=== PATIENT | male | born 1970 | race Caucasian/White ===

== ENCOUNTER 2018-04-25 20:02 | Emergency (ER) | payer OTHER ==
--- NOTE | 2018-04-25 21:23 | UC ---
Respiratory Complaint HPI - HPI Summary HPI Summary: 48 y/o male w/ PMHX of DM type II, COPD and asthma presents to the urgent care c /o productive cough w/ green sputum and fever, chills, body aches for the past 2 days. Pt reports Hx pneumonia last year. Ptt states symptoms started w/ a common cold and then he developed the productive cough w/ wheezing. He has been taking Robitusin PO and his Albuterol inhaler w/o any improvement. Pain is 5/10 body aches and from coughing. Pt took Ibuprofen PO 400mg PO around 1930pm to alleviate fever. Pt denies abdominal pain, chest pain, dizziness, N/V/D, rash , neck pain. - History of Current Complaint Chief Complaint: UCRespiratory Stated Complaint: CHILLS,FEVER,COUGH Time Seen by Provider: 04/25/18 21:15 Hx Obtained From: Patient Onset/Duration: Gradual Onset, Lasting Days - 2 days, Still Present, Worse Since - today Timing: Intermittent Episodes Severity Initially: Mild Severity Currently: Moderate Pain Intensity: 5 - body aches Pain Scale Used: 0-10 Numeric Character: Cough: Productive, Sputum Description: - green Aggravating Factors: Recumbent Position Alleviating Factors: Bronchodilator, OTC Meds - Robitussin Associated Signs And Symptoms: Positive: Fever, Chills, Wheezing, URI, Nasal Congestion - Risk Factors Pulmonary Embolism Risk Factors: Negative Cardiac Risk Factors: Negative Pseudomonas Risk Factors: Negative Tuberculosis Risk Factors: Negative - Allergies/Home Medications Allergies/Adverse Reactions: Allergies Allergy/AdvReac Type Severity Reaction Status Date / Time iodine Allergy GI Upset Verified 04/25/18 20:27 morphine Allergy Hives Verified 04/25/18 20:27 Penicillins Allergy Hives Verified 04/25/18 20:27 seafood Allergy Anaphylatic Uncoded 04/25/18 20:27 Shock Home Medications: Home Medications Albuterol HFA INHALER* [Ventolin HFA Inhaler*] 2 puff INH Q6H PRN 04/25/18 [ History Confirmed 04/25/18] Mometasone/Formoter 100/5 MDI* [Dulera 100/5 MDI*] 2 puff INH BID 04/25/18 [ History Confirmed 04/25/18] Spiriva Inhaler DEVICE* [Tiotropium Inhaler DEVICE*] 2 inh DAILY 04/25/18 [ History Confirmed 04/25/18] metFORMIN* [Glucophage 500 MG TAB *] 500 mg PO BID 04/25/18 [History Confirmed 04/25/18] PMH/Surg Hx/FS Hx/Imm Hx Previously Healthy: Yes Endocrine History: Diabetes Cardiovascular History: Hypertension Respiratory History: COPD, Asthma, Pneumonia - Surgical History Surgical History: Yes Surgery Procedure, Year, and Place: Angio cath. Vasectomy - Family History Known Family History: Positive: Hypertension, Diabetes - Social History Occupation: Employed Full-time Lives: With Family Alcohol Use: Rare Substance Use Type: None Smoking Status (MU): Former Smoker Review of Systems Constitutional: Fever, Chills, Other - body aches Skin: Negative Eyes: Negative ENT: Nasal Discharge, Sinus Congestion Respiratory: Shortness Of Breath, Cough - productive, Other - wheezing Cardiovascular: Negative Gastrointestinal: Negative Genitourinary: Negative Motor: Negative Neurovascular: Negative Musculoskeletal: Negative Neurological: Negative Psychological: Negative Is Patient Immunocompromised?: No All Other Systems Reviewed And Are Negative: Yes Physical Exam - Summary Physical Exam Summary: Vital Signs Reviewed: Yes General: well developed, well nourished obese male sitting in the examining table w/o any apparent distress Eyes: Positive: Conjunctiva Clear - PERRLA, EOMI, fundi grossly normal ENT: Positive: Normal ENT inspection, Hearing grossly normal, Pharynx normal, Nasal congestion - edematous and erythematous nasal mucosa, Nasal drainage - yellowish drainage, TMs normal. Negative: Tonsillar swelling, Tonsillar exudate Neck: Positive: Supple, Nontender, No Lymphadenopathy Respiratory: no orthopnea or dyspnea. Able to speak in full sentences, no retractions or accessory muscle use, no tripod position, stridor, or head bobbing. Positive breath sounds bilaterally. diffuse scattered wheezing and rhonchi on b/L lungs, no crackles or rales. Cardiovascular: Positive: RRR, No Murmur, Pulses Normal, Brisk Capillary Refill Abdomen Description: Positive: Nontender, No Organomegaly, Soft. Negative: CVA Tenderness (R), CVA Tenderness (L) Bowel Sounds: Positive: Present Musculoskeletal Exam: Normal Musculoskeletal: Positive: Strength Intact, ROM Intact, No Edema Neurological Exam: Normal Psychological Exam: Normal Skin Exam: Normal Triage Information Reviewed: Yes Vital Signs: Initial Vital Signs Temp 100.3 F 04/25/18 20:19 Pulse 108 04/25/18 20:19 Resp 20 04/25/18 20:19 BP 135/86 04/25/18 20:19 Pulse Ox 96 04/25/18 20:19 Diagnostic Evaluation - Laboratory O2 Sat by Pulse Oximetry: 96 Respiratory Course/Dx - Course Course Of Treatment: 48 y/o male w/ PMHX of DM type II, COPD and asthma presents to the urgent care c/o productive cough w/ green sputum and fever, chills, body aches for the past 2 days. Pt reports Hx pneumonia last year. Ptt states symptoms started w/ a common cold and then he developed the productive cough w/ wheezing. He has been taking Robitusin PO and his Albuterol inhaler w/ o any improvement. Pain is 5/10 body aches and from coughing. Pt took Ibuprofen PO 400mg PO around 1930pm to alleviate fever. Pt denies abdominal pain, chest pain, dizziness, N/V/D, rash, neck pain. Hx obtained. Pt w/ diffuse scattered wheezing and rhonchi on b/L lungs on examination. O2Sat:96%/. Chest X-ray ordered to r/o pneumonia. Impression: No active Cardiopulmonary disease observed. Pt is a heavy smoker. Rapid Influenza A&B: negative. Prednisone 60 mg PO ordered and Duoneb treatment ordered. Pt tolerated well medications and lungs improved. Pt states feeling better. Pt will be tx for Acute Bronchitis, Rx Doxycycline PO , Prednisone taper dose and Inhaler. Strongly advised to f/u with his Remodeler or PCP for further management on his COPD. Strongly advised if worsening symptoms and he devleops SOB and fever is not control despite taking medications to immediately go to the ER for further management. D /C instructions explained. Pt understood and agreed with D/C instructions and left the clinic hemodynamically stable. - Differential Dx/Diagnosis Differential Diagnosis/HQI/PQRI: Asthma, Bronchitis, Exacerbation Of COPD, Influenza, Lower Resp Infection, Sinusitis, Other - pneumonia Provider Diagnoses: 1- COPD exacerbation due to bronchitis. 2- Wheezing Discharge - Sign-Out/Discharge Documenting (check all that apply): Patient Departure - D/C home All imaging exams completed and their final reports reviewed: No - Discharge Plan Condition: Stable Disposition: HOME Prescriptions: Albuterol HFA INHALER* [Ventolin HFA Inhaler*] 1 - 2 puff INH Q4H PRN #1 mdi PRN Reason: Wheezing Albuterol/Ipratropium NEB.TRI* [Duoneb (Albuterol 2.5 MG/Ipratropium 0.5 MG)] 1 neb INH Q6H PRN #1 box PRN Reason: Wheezing DOXYcycline CAP(*) [DOXYcycline 100MG CAP(*)] 100 mg PO BID #19 cap predniSONE TAB* [Deltasone 10 MG TAB*] 10 - 40 mg PO DAILY #25 tab Patient Education Materials: Acute Bronchitis (ED), COPD (Chronic Obstructive Pulmonary Disease) (ED) Referrals: Carmenza Gillette NP [Primary Care Provider] - 2 Days Additional Instructions: 1-Please take full course of antibiotic to avoid resistance. First dose given tonight. 2- Please take Prednisone PO taper dose as directed. First dose given tonight 3- Continue taking Robitussin PO and use the albuterol inhaler to alleviate wheezing. Increase fluid intake, rest and eat well. 4- If symptoms do not improve or worsen or your develop SOB with fever and severe wheezing please go immediately to the ER further evaluation and treatment. 4- F/u with your PCP in 2-3 days for further management on your COPD. 5- Final radiology reading will be done tomorrow morning. You will be notified if other abnormality is seen 6- Influenza A&B was negative - Billing Disposition and Condition Condition: STABLE Disposition: Home - Attestation Statements Provider Attestation: Per institutional requirements, I have reviewed the chart, however, I was not consulted specifically or made aware of this patient by the midlevel provider. I did not personally evaluate, interact with , or disposition this patient.
[2018-04-25] MEDS ORDERED: Albuterol/Ipratropium NEB.SOL* Albuterol 2.5 MG/Ipratropium 0.5 MG 3 ML INH ONE (21:31)
[2018-04-25] MEDS ORDERED: predniSONE TAB* 20 MG PO ONE (21:31)
[2018-04-25] MEDS ORDERED: Acetaminophen TAB* 325 MG PO ONE (21:34)
[2018-04-25] MEDS ORDERED: DOXYcycline CAP(*) 100 MG PO ONE (21:59)
== END 2018-04-25 22:16 | disposition home or self-care (01) ==
LOC: UCCORT 20:02
DX: J44.1 Chronic obstructive pulmonary disease with (acute) exacerbation (principal); J44.0 Chronic obstructive pulmonary disease with (acute) lower respiratory infection; J40 Bronchitis, not specified as acute or chronic; R06.2 Wheezing; E11.9 Type 2 diabetes mellitus without complications; J45.909 Unspecified asthma, uncomplicated; Z88.8 Allergy status to other drugs, medicaments and biological substances; Z88.5 Allergy status to narcotic agent; Z88.0 Allergy status to penicillin; Z87.891 Personal history of nicotine dependence
CPT/HCPCS: 71046; 99203; A9270-GY; G0463; J7512

== ENCOUNTER 2019-03-13 12:22 | Emergency (ER) | payer OTHER ==
--- OUTSIDE RECORDS SUMMARY | 2019-03-13 12:35 | XMS REPORT | Continuity of Care Document ---
:1970 External Reference #:[id number] Author Name Lizzie Gillette FNP Address [address] [facility] [place] [address] Care Team Providers Name Role Phone Nicole Bell PA Care Team Information Keyboard Operator Unavailable Lizzie Gillette, RECORDS CUSTODIAN - Nurse Care Team Information Keyboard Operator [phone] Practitioner Problems Active Problems Provider Date Hyperlipidemia Lolis Luna FNP-C Onset: 04/01/2016 Chronic obstructive lung disease Lolis Luna FNP-C Onset: 2015 Type 2 diabetes mellitus Lolis Luna FNP-C Onset: 04/15/2016 Heartburn Jose M Coles MD Onset: 04/22/2016 Benign essential hypertension Jose M Coles MD Onset: 04/22/2016 Gastroduodenitis Jose M Coles MD Onset: 07/03/2016 First degree hemorrhoids Jose M Coles MD Onset: 07/03/2016 Social History Type Date Description Comments Sex Unknown Tobacco Use Start: Unknown End: Quit 3 weeks ago Unknown ETOH Use Denies alcohol use Recreational Drug Use Cocaine 10 yrs ago Tobacco Use Start: Unknown End: Patient is a former Unknown smoker Recreational Drug Use Marijuana past Smoking Status Reviewed: 02/14/19 Patient is a former smoker Exercise Type/Frequency Does not exercise Allergies, Adverse Reactions, Alerts Active Allergies Reaction Severity Comments Date Penicillins 04/01/2016 Morphine 04/01/2016 Shellfish-derived Products 07/14/2016 Iodine 07/20/2016 Isosorbide Nitrate Ramirez 09/03/2016 Medications Active Medications SIG Qnty Indications Ordering Date Provider Escitalopram 1/2 tablet PO qd x 90Tablet F43.21 [place], 02/14/2019 Oxalate 4 days then in Lizzie, 20mg crease to 1 by DIRECT[facility] ST[facility] Tablets mouth every day Metformin HCL take one tablet by 60tabs E11.9 [facility], 11/12/2017 mouth twice a day Lizzie, 1000mg Tablets [employer] [facility] Omeprazole take 1 tablet 30caps [place], 09/14/2017 40mg daily. Lizzie, Capsules DR [facility] Spiriva Respimat take 2 puffs once 12gm J44.9 [facility], 07/05/2017 daily. Lizize, 2.5mcg/Act Aerosol [facility] Ventolin HFA take 2 puffs every 8gm Chepe Jacinto, 07/05/2017 6 hours as needed 108(90Base) mcg/Act for shortness of Aerosol breath. Atorvastatin 1 by mouth every 30tabs E78.5 [place], 05/25/2017 Calcium day Lizzie, 40mg [employer] [facility] Tablets Lisinopril take one tablet by 30tabs I10 [place], 05/25/2017 10mg mouth every day Lizzie, Tablets [employer] [facility] Furosemide 1 by mouth every 30tabs R60.0 Stacie Campos, 04/22/2017 40mg day as needed M.D. Tablets Albuterol Sulfate inhale 3 75ml J44.9 Stacie Campos, 04/15/2016 milliliters via M.D. (2.5mg/3ML) 0.083% nebulizer every 4 Nebulizer hours as needed for bronchospasm Blood Glucose Check blood sugar 3 1units E11.9 Stacie Campos, 04/15/2016 Monitoring System times per week M.D. before breakfast W/Device Kit Blood Glucose Test Check blood sugar 3 30units E11.9 Stacie Campos, 2015 times per week M.D. Strips before breakfast Lancets Ultra Thin Check blood sugars 30units E11.9 Stacie Campos, 2015 3 times per week M.D. Misc before breakfast Nebulizer J44.9 Stacie Campos, 04/15/2016 Kit/Tubing/Mouthpie M.D. ce Kit Nebulizer Nebulizer machine 1units Stacie Campos, 04/15/2016 Device as needed every 4 M.D. hours for cough or shotness of breath. Dx j18.9 and j44.9 COPD/ pneumonia Dulera take two puffs 13gm Clune, 100-5mcg/Act twice daily. rinse Jenniferleiadela, Aerosol mouth after use. [employer] Meclizine HCL [place], 25mg MD Trevon Tablets Immunizations CPT Code Status Date Vaccine Lot # [id number] Given 04/15/2016 Influenza Virus Vaccine Split Virus Use For [id number] Individual 3Yr Older Vital Signs Date Vital Result Comment 02/14/2019 1:45pm BP Systolic Sitting Right Arm 149 mmHg BP Diastolic Sitting Right Arm 99 mmHg Heart Rate 85 /min Respiratory Rate 18 /min Height 67.5 inches 5'7.50" Weight 295.00 lb BMI (Body Mass Index) 45.5 kg/m2 BSA (Body Surface Area) 2.40 m2 [place] body weight in kilograms 68 kg 11/11/2017 9:25am BP Systolic 130 mmHg BP Diastolic 80 mmHg Body Temperature 96.7 F Heart Rate 96 /min Weight 299.00 lb O2 % BldC Oximetry 96 % Results Test Date Facility Test Result H/L Range Note Glycohemoglobin A1c [facility] [address] Glycohemoglobin 8.2 % High 4.2-6.3 1, 2 9 [address] (A1c) [place] [address] [phone] eAG 189 mg/dL 1 E11.9 2 Elevated levels of HbA1c suggest the need for more aggressive treatment of glycemia. The [place] [employer] recommends that a primary goal of therapy should be a HbA1c of <7% and that physicians should re-evaluate the treatment regimen in patients with HbA1c values consistently >8%. Procedures Date Code Description Status 02/14/2019 [id number] Diabetic Foot Exam Completed 05/07/2016 [id number] Colonoscopy Completed Medical Devices Description No Information Available Encounters Type Date Location Provider Dx Diagnosis Office Visit 02/14/2019 Family Medicine [place], Z00.01 Encounter for 2:15p [place] general adult DIRECT[facility] ST[facility] medical exam w abnormal findings E11.9 Type 2 diabetes mellitus without complications F43.21 Adjustment disorder with depressed mood J44.9 Chronic obstructive pulmonary disease, unspecified I10 Essential (primary) hypertension K21.9 Gastro-esophageal reflux disease without esophagitis Assessments Date Code Description Provider 02/14/2019 Z00.01 Encounter for general adult medical Lizzie Gillette FNP examination with abnormal findings 02/14/2019 E11.9 Type 2 diabetes mellitus without Lizzie Gillette FNP complications 02/14/2019 F43.21 Adjustment disorder with depressed mood Lizzie Gillette FNP 02/14/2019 J44.9 Chronic obstructive pulmonary disease, Lizzie Gillette FNP unspecified 02/14/2019 I10 Essential (primary) hypertension Lizzie Gillette FNP 02/14/2019 K21.9 Gastro-esophageal reflux disease without Lizzie Gillette FNP esophagitis Plan of Treatment Future Appointment(s):02/28/2019 1:45 pm - Lizzie Gillette FNP at [facility]02/14/2019 - Lizzie Gillette FNPZ00.01 Encounter for general adult medical examination with abnormal findingsComments:Immunizations: TDAP up to date. Counseling provided re: influenza and Pneumococcal 23 vaccines. Patient hesitant to accept vaccines d/t recent onset of multiple allergies. Will hold vaccines for now. Multiple Health Issues & Health Maintenance: colonoscopy in 2016. Today Андрей would like to focus on managing the depression he is experiencing. Will work on remaining health issues at subsequent visits.E11.9 Type 2 diabetes mellitus without complicationsComments: A1c drawn today. Will notify patient of results when available. Will make medication adjustments as needed. Importance of dietary changes and medication compliance reviewed. Diabetic foot exam deferred, per patient request. Will do at next visit.F43.21 Adjustment disorder with depressed moodNew Medication: Escitalopram Oxalate 20 mg - 1/2 tablet PO qd x 4 days then in crease to 1 by mouth every dayComments:Escitalopram prescribed. Possible side effects of RAMIREZ, GI upset, and decreased libido discussed. Encouraged to call office with questions or unwanted side effects. Will f/u in 2-3 weeks to assess effectiveness and compliance.Follow up:2-3 xxhrzD15.9 Chronic obstructive pulmonary disease, unspecifiedComments:Keep appointments with Pulmonology for management of COPD. Will prescribe medications as ordered by Cloth Examiner as Андрей has been out of medication x 3-4 months.I10 Essential (primary) hypertensionComments:BP uncontrolled. Need to restart medication and take as prescribed. Lisinopril and Furosemide reordered. Will reassess effectiveness and compliance at f/u appointment in 2-3 weeks.K21.9 Gastro-esophageal reflux disease without esophagitisComments:Rx for Omeprazole sent to pharmacy. May take TUMS as needed in addition to Omeprazole. Reviewed comfort measures - elevating HOB, avoiding caffeine, cutting back on smoking, limiting alcohol, trigger foods, etc. Functional Status Functional Condition Comment Date Status Independent with all ADL's Active Independent with all IADL's Active Mental Status Description No Information Available Referrals Description No Information Available
[2019-03-13 13:03] VITALS: BP 117/74
--- NOTE | 2019-03-13 13:12 | UC ---
General HPI - HPI Summary HPI Summary: 2-3 day hx of cough with green sputum, lung tightness, sob and wheezing. hx asthma and COPD. No F/C's or CP. - History of Current Complaint Chief Complaint: UCRespiratory Stated Complaint: DIFFICULTY BREATHING Time Seen by Provider: 03/13/19 13:01 Hx Obtained From: Patient Onset/Duration: Gradual Onset Timing: Constant Pain Intensity: 4 Associated Signs & Symptoms: Positive: Cough, SOB, Wheezing. Negative: Chest Pain, Diarrhea, Nausea, Palpitations, Vomiting - Allergy/Home Medications Allergies/Adverse Reactions: Allergies Allergy/AdvReac Type Severity Reaction Status Date / Time iodine Allergy GI Upset Verified 03/13/19 12:57 morphine Allergy Hives Verified 03/13/19 12:57 Penicillins Allergy Hives Verified 03/13/19 12:57 azithromycin [From Zithromax] AdvReac "highlighted Verified 03/13/19 12:57 veins in arm", itching seafood Allergy Anaphylatic Uncoded 03/13/19 12:57 Shock Home Medications: Home Medications Atorvastatin* [Lipitor 10 MG*] 1 tab DAILY 03/13/19 [History Confirmed 03/13/19] Escitalopram * [Lexapro *] 10 mg DAILY 03/13/19 [History Confirmed 03/13/19] Lisinopril TAB* [Prinivil TAB 10 MG*] 1 tab DAILY 03/13/19 [History Confirmed ] Meclizine TAB* [Antivert 12.5 TAB*] 1 tab TID PRN 03/13/19 [History Confirmed ] Omeprazole 1 tab QAM 03/13/19 [History Confirmed 03/13/19] PMH/Surg Hx/FS Hx/Imm Hx Endocrine History: Diabetes Cardiovascular History: Hypertension Respiratory History: COPD, Asthma - Surgical History Surgical History: Yes Surgery Procedure, Year, and Place: Angio cath. Vasectomy - Family History Known Family History: Positive: Hypertension, Diabetes - Social History Alcohol Use: None Substance Use Type: None Smoking Status (MU): Light Every Day Tobacco Smoker Type: Cigarettes Amount Used/How Often: less than 10 cigs/day Length of Time of Smoking/Using Tobacco: 30 years When Did the Patient Quit Smoking/Using Tobacco: 8 months ago Review of Systems All Other Systems Reviewed And Are Negative: No Constitutional: Negative: Fever, Chills ENT: Negative: Sore Throat, Sinus Congestion Respiratory: Positive: Shortness Of Breath, Cough Cardiovascular: Negative: Palpitations, Chest Pain Physical Exam Triage Information Reviewed: Yes Appearance: Well-Appearing Vital Signs: Initial Vital Signs Temp 97.7 F 03/13/19 12:59 Pulse 73 03/13/19 12:59 Resp 18 03/13/19 12:59 BP 117/74 03/13/19 12:59 Pulse Ox 96 03/13/19 12:59 Vital Signs Reviewed: Yes Eyes: Positive: Conjunctiva Clear ENT: Positive: Normal ENT inspection Neck: Positive: Supple, Nontender, No Lymphadenopathy Respiratory: Positive: No respiratory distress, Decreased breath sounds, Other: - occasional congested cough.. Negative: Crackles, Rhonchi Cardiovascular: Positive: RRR, No Murmur Abdomen Description: Positive: Nontender Bowel Sounds: Positive: Present Musculoskeletal: Positive: ROM Intact Neurological: Positive: Alert Psychological: Positive: Age Appropriate Behavior Skin Exam: Normal Course/Dx - Differential Dx - Multi-Symptom Differential Diagnoses: Other - pt declined tx here and cxr. will cover for copd flare - Diagnoses Provider Diagnosis: COPD (chronic obstructive pulmonary disease) Discharge ED - Sign-Out/Discharge Documenting (check all that apply): Patient Departure All imaging exams completed and their final reports reviewed: No Studies - Discharge Plan Condition: Stable Disposition: HOME Prescriptions: Albuterol 2.5MG/3ML (0.083%)* [Ventolin 2.5 MG/3 ML NEB.TRI*] 2.5 mg INH Q6H PRN #1 neb.tri PRN Reason: Sob/Wheezing DOXYcycline CAP(*) [DOXYcycline 100MG CAP(*)] 100 mg PO BID 10 Days #20 cap predniSONE TAB* [Deltasone 20 MG TAB*] 40 mg PO DAILY 5 Days #10 tab Patient Education Materials: COPD (Chronic Obstructive Pulmonary Disease) (ED) Referrals: Carmenza Gillette NP [Primary Care Provider] - 7 Days Additional Instructions: use the rescue inhaler or the nebulizer every 6 hours but not both at the same time - Billing Disposition and Condition Condition: STABLE Disposition: Home
== END 2019-03-13 13:28 | disposition home or self-care (01) ==
LOC: UCCORT 12:22
DX: J44.9 Chronic obstructive pulmonary disease, unspecified (principal); Z88.0 Allergy status to penicillin; Z88.1 Allergy status to other antibiotic agents; E11.9 Type 2 diabetes mellitus without complications; Z87.891 Personal history of nicotine dependence
CPT/HCPCS: 99212; G0463

== ENCOUNTER 2019-05-06 17:13 | Emergency (ER) | payer OTHER ==
--- OUTSIDE RECORDS SUMMARY | 2019-05-06 17:25 | XMS REPORT | Continuity of Care Document ---
:1970 External Reference #:[id number] Author Name Lizzie Gillette FNP Address [address] [facility] [place] [address] Care Team Providers Name Role Phone Nicole Bell PA Care Team Information Medical Or Surgical Instrument Maker Unavailable Lizzie Gillette, STOREROOM CLERK - Nurse Care Team Information Medical Or Surgical Instrument Maker [phone] Practitioner Problems Active Problems Provider Date Hyperlipidemia [...] Unknown smoker Recreational Drug Use Marijuana past Tobacco Use Start: Unknown Light tobacco smoker (10 or fewer cigarettes/day) Smoking Status Reviewed: 02/28/19 Light tobacco smoker (10 or fewer cigarettes/day) Exercise Type/Frequency Does not exercise Allergies, Adverse Reactions, Alerts Active Allergies Reaction Severity Comments Date Penicillins 04/01/2016 Morphine 04/01/2016 Shellfish-derived Products 07/14/2016 Iodine 07/20/2016 Isosorbide Nitrate [place] 09/03/2016 Medications Active Medications SIG Qnty Indications Ordering Date Provider Escitalopram 1/2 tablet PO qd x 90Tablet F43.21 [place], 02/14/2019 Oxalate 4 days then in Lizzie, 20mg crease to 1 by DAY CARE PROVIDER Tablets mouth every day Metformin HCL take one tablet by 60tabs E11.9 [facility], 11/12/2017 mouth twice a day Lizzie, 1000mg Tablets DAY CARE PROVIDER Omeprazole take 1 tablet 30caps [place], 09/14/2017 40mg daily. Lizzie, Capsules DR DAY CARE PROVIDER Spiriva Respimat take 2 puffs once 12gm J44.9 [place], 07/05/2017 daily. Lizzie 2.5mcg/Act Aerosol DAY CARE PROVIDER Ventolin HFA take 2 puffs every 8gm [place], 07/05/2017 6 hours as needed Lizzie 108(90Base) mcg/Act for shortness of DAY CARE PROVIDER Aerosol breath. Atorvastatin 1 by mouth every 30tabs E78.5 [place], 05/25/2017 Calcium day Lizzie, 40mg DAY CARE PROVIDER Tablets Lisinopril take one tablet by 30tabs I10 [facility], 05/25/2017 10mg mouth every day Lizzie Tablets DAY CARE PROVIDER Furosemide 1 by mouth every 30tabs R60.0 [...] Kit/Tubing/Mouthpie M.D. ce Kit Nebulizer Nebulizer machine 1unStacie Green, 04/15/2016 Device as needed every 4 M.D. hours for cough or shotness of breath. Dx j18.9 and j44.9 COPD/ pneumonia Dulera take two puffs 13gm [place], 100-5mcg/Act twice daily. rinse Jennifer[place], Aerosol mouth after use. DAY CARE PROVIDER Meclizine HCL [place], 25mg MD Trevon Tablets Immunizations CPT Code Status Date Vaccine Lot # [id number] Given 04/15/2016 Influenza Virus Vaccine Split Virus Use For [id number] Individual 3Yr Older Vital Signs Date Vital Result Comment 02/28/2019 1:51pm BP Systolic 121 mmHg BP Diastolic 70 mmHg Body Temperature 98.6 F Heart Rate 75 /min Respiratory Rate 16 /min Height 68.5 inches 5'8.50" Weight 291.00 lb BMI (Body Mass Index) 43.6 kg/m2 BSA (Body Surface Area) 2.41 m2 [place] body weight in kilograms 71 kg O2 % BldC Oximetry 95 % 02/14/2019 1:45pm BP Systolic Sitting Right Arm 149 mmHg BP Diastolic Sitting Right Arm 99 mmHg Heart Rate 85 /min Respiratory Rate 18 /min Height 67.5 inches 5'7.50" Weight 295.00 lb BMI (Body Mass Index) 45.5 kg/m2 BSA (Body Surface Area) 2.40 m2 [place] body weight in kilograms 68 kg Results Test Date Facility Test Result H/L Range Note Glycohemoglobin A1c [facility] [address] Glycohemoglobin 8.2 % High 4.2-6.3 1, 2 9 [address] [facility] (A1c) [place] [address] [phone] eAG 189 mg/dL 1 E11.9 2 Elevated levels of HbA1c suggest the need for more aggressive treatment of glycemia. The [place] [employer] recommends that a primary goal of therapy should be a HbA1c of <7% and that physicians should re-evaluate the treatment regimen in patients with HbA1c values consistently >8%. Procedures Date Code Description Status 02/14/2019 [id number] Diabetic Foot Exam Completed 05/07/2016 [id number] Colonoscopy Completed Medical Devices Description No Information Available Encounters Type Date Location Provider Dx Diagnosis Office Visit 02/28/2019 [facility] Nain, E11.9 Type 2 diabetes 1:45p [facility] [place], mellitus without DAY CARE PROVIDER complications J44.9 Chronic obstructive pulmonary disease, unspecified I10 Essential (primary) hypertension F43.21 Adjustment disorder with depressed mood Office Visit 02/14/2019 Family Nain, Z00.01 Encounter for 2:15p [facility] SANGITA Samuel general adult RD medical exam w abnormal findings E11.9 Type 2 diabetes mellitus without complications F43.21 Adjustment disorder with depressed mood J44.9 Chronic obstructive pulmonary disease, unspecified I10 Essential (primary) hypertension K21.9 Gastro-esophageal reflux disease without esophagitis Assessments Date Code Description Provider 02/28/2019 E11.9 Type 2 diabetes mellitus without Clune, Dianaferleiadela, DAY CARE PROVIDER complications 02/28/2019 J44.9 Chronic obstructive pulmonary disease, Clune, Dianaferroyce , DAY CARE PROVIDER unspecified 02/28/2019 I10 Essential (primary) hypertension Lizzie Gillette, DAY CARE PROVIDER 02/28/2019 F43.21 Adjustment disorder with depressed mood Nain, Dianaferroyce, DAY CARE PROVIDER 02/14/2019 Z00.01 Encounter for general adult medical Lizzie Gillette FNP examination with abnormal findings 02/14/2019 E11.9 Type 2 diabetes mellitus without Clkayla, Dianaferroyce, DAY CARE PROVIDER complications 02/14/2019 F43.21 Adjustment disorder with depressed mood Nain, Lizzie, DAY CARE PROVIDER 02/14/2019 J44.9 Chronic obstructive pulmonary disease, Efrainune, Dianaferroyce , DAY CARE PROVIDER unspecified 02/14/2019 I10 Essential (primary) hypertension Nain, Lizzie, DAY CARE PROVIDER 02/14/2019 K21.9 Gastro-esophageal reflux disease without Nain, Normaniferleigh, DAY CARE PROVIDER esophagitis Plan of Treatment Future Appointment(s):05/01/2019 11:15 am - Lizzie Gillette FNP at [facility]02/28/2019 - Lizzie Gillette FNPE11.9 Type 2 diabetes mellitus without complicationsComments:Commended for taking first steps toward healthier diet and taking medication as prescribed. Sweaty, shaky feelings most likely r/t DM, and not Lexapro. Reviewed symptoms of hypo/hyperglycemia. Will check A1c at next visit.Follow up:8 weeks ( 30 minutes) A1c a few days [id number] Chronic obstructive pulmonary disease, unspecifiedComments: Significant improvement noted with restarting medications. Education provided re : asthma control - while Ventolin BID is a major improvement, BID use still indicates poor control of symptoms. Will initiate Pulmonary referral.I10 Essential (primary) hypertensionComments:Blood pressure stable and at goal - no changes to medication necessary. Continue as prescribed.F43.21 Adjustment disorder with depressed moodComments:Noted improvement since beginning the medication. Will continue, despite side effects, per patient preference. Should side effects become bothersome, please let office know. Full effect of Lexapro at current dose should be observed in approximately 4-6 weeks. Patient has f/u scheduled for 8 weeks for DM - will reevaluate mood again at this visit. Functional Status Functional Condition Comment Date Status Independent with all ADL's Active Independent with all IADL's Active Mental Status Description No Information Available Referrals Description No Information Available
[2019-05-06 17:45] VITALS: BP 128/65
--- NOTE | 2019-05-06 17:58 | UC ---
Respiratory Complaint HPI - HPI Summary HPI Summary: Patient is a 49yo male with h/o asthma and COPD presenting with complaint of productive cough x1 week and thoracic back pain x2-3 days. Also notes nasal congestion. Notes increasing SOB and wheezing. Increased sputum production. States he has been using albuterol inhaler and nebulizer without relief. Denies fever and chills. Denies n/v. Patient notes h/o pneumonia with last time being fall of 2018. Patient is concerned he has pneumonia again. - History of Current Complaint Chief Complaint: UCGeneralIllness Stated Complaint: COUGH, BACK PAIN Hx Obtained From: Patient Onset/Duration: Gradual Onset, Lasting Days Severity Initially: Mild Severity Currently: Moderate Pain Intensity: 7 Pain Scale Used: 0-10 Numeric - Allergies/Home Medications Allergies/Adverse Reactions: Allergies Allergy/AdvReac Type Severity Reaction Status Date / Time iodine Allergy GI Upset Verified 05/06/19 17:46 morphine Allergy Hives Verified 05/06/19 17:46 Penicillins Allergy Hives Verified 05/06/19 17:46 azithromycin [From Zithromax] AdvReac "highlighted Verified 05/06/19 17:46 veins in arm", itching seafood Allergy Anaphylatic Uncoded 05/06/19 17:46 Shock PMH/Surg Hx/FS Hx/Imm Hx Endocrine History: Diabetes, Dyslipidemia Cardiovascular History: Hypertension - Surgical History Surgical History: Yes Surgery Procedure, Year, and Place: Angio cath. Vasectomy - Family History Known Family History: Positive: Hypertension, Diabetes - Social History Alcohol Use: None Substance Use Type: None Smoking Status (MU): Light Every Day Tobacco Smoker Type: Cigarettes Amount Used/How Often: less than 10 cigs/day Length of Time of Smoking/Using Tobacco: 30 years When Did the Patient Quit Smoking/Using Tobacco: 8 months ago Review of Systems All Other Systems Reviewed And Are Negative: Yes Constitutional: Positive: Negative. Negative: Fever, Chills ENT: Positive: Sinus Congestion. Negative: Sore Throat, Ear Ache, Nasal Discharge, Sinus Pain/Tenderness Respiratory: Positive: Shortness Of Breath, Cough - productive Cardiovascular: Positive: Negative Gastrointestinal: Positive: Negative Musculoskeletal: Positive: Myalgia - back pain with coughing. Negative: Arthralgia Neurological: Positive: Negative Physical Exam Triage Information Reviewed: Yes Appearance: No Pain Distress, Ill-Appearing, Obese Vital Signs: Initial Vital Signs Temp 97.7 F 05/06/19 17:43 Pulse 79 05/06/19 17:43 Resp 20 05/06/19 17:43 BP 128/65 05/06/19 17:43 Pulse Ox 97 05/06/19 17:43 Vital Signs Reviewed: Yes Eyes: Positive: Conjunctiva Clear ENT: Positive: Hearing grossly normal, Pharyngeal erythema, TMs normal, Uvula midline. Negative: Nasal congestion, Nasal drainage Neck exam: Normal Neck: Positive: Supple, Nontender, No Lymphadenopathy Respiratory: Positive: Wheezing - faint diffuse b/l Cardiovascular Exam: Normal Cardiovascular: Positive: RRR Musculoskeletal Exam: Normal Neurological: Positive: Alert Psychological: Positive: Age Appropriate Behavior Diagnostics - Radiology chest Radiology Interpretation Completed By: ED Physician Summary of Radiographic Findings: no acute process Respiratory Course/Dx - Course Course Of Treatment: Patient treated with prednisone and doxycycline for COPD exacerbation. Also provided refill of albuterol inhaler. Instructed to finish full course of both medications and to follow up with pcp for persistent symptoms. Instructed to go to ED if symptoms worsen. Patient voiced understanding and agreed with treatment plan. - Differential Dx/Diagnosis Provider Diagnosis: COPD exacerbation Discharge ED - Sign-Out/Discharge Documenting (check all that apply): Patient Departure All imaging exams completed and their final reports reviewed: No - Discharge Plan Condition: Stable Disposition: HOME Prescriptions: Albuterol HFA INHALER* [Ventolin HFA Inhaler*] 1 - 2 puff INH Q6H PRN #1 mdi PRN Reason: Sob/Wheezing DOXYcycline CAP(*) [DOXYcycline 100MG CAP(*)] 200 mg PO DAILY #12 cap predniSONE TAB* [Deltasone 20 MG TAB*] 20 mg PO SEE INSTRUCTIONS #15 tab Patient Education Materials: COPD (Chronic Obstructive Pulmonary Disease) (ED) Forms: *Work Release Referrals: Carmenza Gillette NP [Primary Care Provider] - If Needed Additional Instructions: As discussed, take the prednisone and doxycycline as prescribed for treatment of your COPD exacerbation. You received the first dose of both today at the urgent care. You may continue with your albuterol inhaler as directed for shortness of breath and wheezing. Be sure to get plenty of rest and fluids. Follow up with you PCP if symptoms persist. Go to the Emergency Room if symptoms worsen. - Billing Disposition and Condition Condition: STABLE Disposition: Home
[2019-05-06] MEDS ORDERED: predniSONE TAB* 20 MG PO ONE (18:25)
[2019-05-06] MEDS ORDERED: DOXYcycline CAP(*) 100 MG PO ONE (18:26)
--- NOTE | 2019-05-07 07:30 | UC ---
- Progress Note Progress Note: Reviewed radiology report of chest xray: Dr. Swift: no radiographic evidence of acute pulmonary disease. No change from wet read, no change in management. Course/Dx - Diagnoses Provider Diagnoses: COPD exacerbation Discharge ED - Sign-Out/Discharge Documenting (check all that apply): Post-Discharge Follow Up All imaging exams completed and their final reports reviewed: Yes - Discharge Plan Condition: Stable Disposition: HOME Prescriptions: Albuterol HFA INHALER* [Ventolin HFA Inhaler*] 1 - 2 puff INH Q6H PRN #1 mdi PRN Reason: Sob/Wheezing DOXYcycline CAP(*) [DOXYcycline 100MG CAP(*)] 200 mg PO DAILY #12 cap predniSONE TAB* [Deltasone 20 MG TAB*] 20 mg PO SEE INSTRUCTIONS #15 tab Patient Education Materials: COPD (Chronic Obstructive Pulmonary Disease) (ED) Forms: *Work Release Referrals: Carmenza Gillette, JAVASCRIPT FRONT END DEVELOPER [Primary Care Provider] - If Needed Additional Instructions: As discussed, take the prednisone and doxycycline as prescribed for treatment of your COPD exacerbation. You received the first dose of both today at the urgent care. You may continue with your albuterol inhaler as directed for shortness of breath and wheezing. Be sure to get plenty of rest and fluids. Follow up with you PCP if symptoms persist. Go to the Emergency Room if symptoms worsen. - Billing Disposition and Condition Condition: STABLE Disposition: Home
== END 2019-05-06 18:42 | disposition home or self-care (01) ==
LOC: UCCORT 17:13
DX: J44.1 Chronic obstructive pulmonary disease with (acute) exacerbation (principal); E11.9 Type 2 diabetes mellitus without complications; I10 Essential (primary) hypertension; F17.210 Nicotine dependence, cigarettes, uncomplicated; Z91.09 Other allergy status, other than to drugs and biological substances; Z88.0 Allergy status to penicillin; Z88.1 Allergy status to other antibiotic agents; Z88.5 Allergy status to narcotic agent; Z91.013 Allergy to seafood
CPT/HCPCS: 71046; 99212; A9270-GY; G0463; J7512